=== PATIENT | female | born 2000 | race African-American/Black ===

== ENCOUNTER 2018-11-25 09:21 | Emergency (ER) | payer OTHER ==
[~2018-11-25] VITALS: Ht 157.5 cm; Wt 69.5 kg
[2018-11-25] MEDS ORDERED: NS 1,000 ML IV ONE (09:30)
[2018-11-25 09:57] LABS: HEMATOCRIT 39.8 % (36.0-47.0); HEMOGLOBIN 12.8 g/dl (12.0-15.5); MEAN CORPUSCULAR HEMOGLOBIN 32.9 pg (27.0-33.0); MEAN CORPUSCULAR HGB CONC 32.2 g/dl (32.0-36.5); MEAN CORPUSCULAR VOLUME 102.3 fl (80.0-96.0); PLATELET COUNT, AUTOMATED 297 10^3/uL (150-450); RED BLOOD COUNT 3.89 10^6/uL (4.00-5.40); WHITE BLOOD COUNT 13.1 10^3/uL (4.0-10.0)
[2018-11-25 10:27] LABS: BLOOD UREA NITROGEN 13 MG/DL (7-18); CARBON DIOXIDE LEVEL 26 MEQ/L (21-32); CHLORIDE LEVEL 107 MEQ/L (98-107); CREATININE FOR GFR 1.04 MG/DL (0.55-1.30); GLUCOSE, FASTING 81 MG/DL (70-100); POTASSIUM SERUM 4.6 MEQ/L (3.5-5.1); SODIUM LEVEL 140 MEQ/L (136-145)
--- NOTE | 2018-11-25 11:02 | REP ---
Clinical: Trauma . Comparison: None . Findings: The ventricles, sulci, and cisterns are normal in position and appearance. Bailey-white differentiation is maintained. No acute intracranial hemorrhage, mass/mass effect, pathology or trauma/injury. No evidence for acute infarction. No extra-axial fluid collection. Calvarium is intact. Paranasal sinuses and mastoid air cells are clear. Impression: Normal noncontrast head CT. No evidence for acute intracranial pathology or trauma/injury. Electronically Signed by Rajesh Telles MD 11/25/2018 10:54 A
[2018-11-25 11:30] VITALS: BP 117/77
--- NOTE | 2018-11-25 20:07 | ECGEPIP ---
[facility] - ED Test Date: 2018-11-25 Pat Name: ALOK SPRINGER Department: Room: - Gender: Female Garden [employer]: : 2000 Requested By: Bozena Leija Order Number: [id number] Reading MD: Jeremy Mcgowan Measurements Intervals Elim Rate: 67 P: MA: -1 QRS: 33 QRSD: 87 T: 26 QT: 390 QTc: 412 Interpretive Statements SINUS RYTHM WITH MARKED SINUS ARRHYTHMIA BENIGN EARLY REPOLARIZATION NO PRIORS FOR COMPARISON Electronically Signed on 11-25-2018 20:07:32 EDT by Jeremy Mcgowan
== END 2018-11-25 11:52 | disposition home or self-care (01) ==
LOC: EDBD 09:21 → M ED 09:21
DX: R55 Syncope and collapse (principal)